=== PATIENT | male | born 1970 ===

== ENCOUNTER 2022-12-09 18:33 | Emergency (ER) | payer BC ==
[2022-12-09] MEDS ORDERED: Lactated Ringers 1,000 ML IV ONE (19:03)
[2022-12-09] MEDS ORDERED: Ketorolac 30 MG/ML SDV IVPUSH ONE (19:14)
[2022-12-09] MEDS ORDERED: Ondansetron 4 MG/2 ML SDV IVPUSH ONE (19:14)
[2022-12-09] MEDS ORDERED: Morphine 4 MG/ML Syringe IVPUSH ONE (19:14)
[2022-12-09 20:06] LABS: CARBON DIOXIDE,CO2 25.3 mmol/L (21.0-32.0); POTASSIUM,K 4.1 mmol/L (3.5-5.1)
[2022-12-09] MEDS ORDERED: Lactated Ringers 1,000 ML IV SCH (20:30)
[2022-12-09] MEDS ORDERED: Iopamidol 755 MG/ML 500 ML Multipack Bottle IVPUSH STA (20:50)
== END 2022-12-09 22:37 | disposition home or self-care (01) ==
LOC: MW.ED 18:33
DX: R10.9 Unspecified abdominal pain (principal)
CPT/HCPCS: 36415; 74177; 80053; 81003; 83690; 85025; 96361; 96374; 96375; 99284; J1885; J2270; J2405; J7120; Q9967